=== PATIENT | male | born 1975 | race Caucasian/White ===

== ENCOUNTER → 2021-03-10 | Outpatient (CLI) | payer OTHER ==
[~2021-03-10] VITALS: Ht 188 cm; Wt 131.5 kg
[~2021-03-10] MED LIST: BACLOFEN 10MG T10 MG PO; DAILY VITE1 EAC1 PO; FISH OIL 1,0001 EAC9 PO; LYRICA 75 MG CA75 MG PO; NAPROXEN500 MG PO; PROTONIX40 M2 PO; ZYRTEC10 M4 PO
[2021-03-10 10:01] VITALS: BP 140/97
--- NOTE | 2021-03-10 10:22 | NUR ---
Pain Clinic Assessment: 1. History of Osteoarthritis: BACK History of Rheumatoid Arthritis: 2. Height: 6 ft. 2 in. 188.0 cm. Weight: 290.0 lb. oz. 131.544 kg. Patient's BMI: 37.2 3. Vital Signs: BP: 140/97 Pulse: 63 Resp: 18 Temp: 02 Sat: 99 ECG Mon: 4. Pain Intensity: 6 5. Fall Risk: Dizziness: N Needs help standing or walking: N Fallen in the last 3 months: N Fall risk comments: 6. Patient on Blood Thinner: None 7. History of Hypertension: N 8. Opioid Therapy greater than 6 weeks: Opiate Contract Signed: 9. Risk Assessment Tool Provided: 6 MODERATE RISK 10. Functional Assessment Tool: 45/70 11. Recreational Drug Use: Never Drug Type: Tobacco Use: Never Smoker Tobacco Type: Amount or Packs/day: How Many Years: Alcohol Use: Yes Frequency: Weekly Quant: 1-2
--- NOTE | 2021-03-11 08:51 | HPC ---
[facility] [place] [address] PAIN MANAGEMENT CONSULTATION Name: FLACA RUSSO Room #: REG Arlene SchmidRogerAyala.#: [id number] Admission: 03/10/21 Attend Phys: Amor Varma DO Discharge: Date of : 79 Report #: [id number] THIS REPORT FOR: cc: LAWRENCE - Family physician unknown FAM - Family physician unknown Amor Varma DO ~ cc: Cammei Carter MD DATE OF SERVICE: 03/10/2021 REFERRING PHYSICIAN: Cammie Carter DO. CHIEF COMPLAINT: Low back pain, right lower extremity pain with paresthesias. HISTORY OF PRESENT ILLNESS: As you know, the patient is a very pleasant 45-year-old male who reports acute onset of low back pain, right lateral thigh pain with radiation to the calf that began on 01/11/2021. The patient denied any specific injury or trauma that may have led to symptom development. He has had intermittent back pain over the years, which typically spontaneously resolved. He underwent MRI of the lumbar spine in 10/2020 for chronic back pain issues. At that time, the patient was given a 5-day prednisone taper, which provided good benefit, but unfortunately only short-lived. He has been trying conservative treatment options without benefit. He has been complaining of ongoing back symptoms that radiate towards the right side, unresolved with his current medication management. This prompted a referral to our clinic to discuss interventional treatment options. The patient indicates today his pain is continuous. He describes the pain as a burning, shooting, sharp, stabbing, numbness and tingling. Places current pain score 6/10. Daily average at 6/10. Worst pain has been 10/10. The patient states the pain is exacerbated with no specific activity. Pain is improved with only steroid exposure in the past. No other benefits or analgesic therapeutic options have been effective. He has been referred to our service to discuss interventional treatment options to address suspected lumbar radiculopathy. PAST MEDICAL HISTORY: 1. GERD. 2. Right elbow pain. 3. Right shoulder pain. 4. Right knee pain. 5. Seasonal allergies. 6. Varicoceles. PAST SURGICAL HISTORY: 1. Vasectomy. 2. Right great toe surgery x2. 3. Right knee surgery. [address] [address] PAIN MANAGEMENT CONSULTATION Name: FLACA RUSSO Room #: REG CLI Magalis.#: [id number] Admission: 03/10/21 Attend Phys: Amor Varma DO Discharge: Date of : 79 Report #: [id number] SOCIAL HISTORY: The patient denies tobacco use. Denies IV or illicit drug use. Admits to 5 alcoholic beverages per week. 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 He is not receiving Workmen's compensation. He is receiving disability income and benefits. He is not in litigation in regards to pain. He is unaccompanied at today's visit. REVIEW OF SYSTEMS: Positive for weight gain, hearing loss with tinnitus; shortness of breath with walking, lying flat; asthma, wheezing, changes in bowel movements, frequent diarrhea interspersed with constipation, abdominal pain, frequent urination, nocturia, testicular symptoms secondary to varicocele, changes in skin color and texture, rashes and itching, varicose veins, numbness and tingling sensations involving the low back and right lower extremity. All other review of systems negative per 12-point review of systems other than those listed in history of present illness. Pain impact score 45/70 indicating moderate interference of daily activities secondary to pain. ALLERGIES: No known drug allergies. CURRENT MEDICATIONS: Pantoprazole 40 mg once a day, naproxen 500 mg twice a day, baclofen 10 mg 3 times a day. IMAGING: MRI of the lumbar spine obtained on 10/27/2020 shows grade 1 anterolisthesis of L5 on S1. Degenerative findings around the right L5-S1 facet joint. There is mild hypertrophy at L1 through L4 with no significant central canal or neural foraminal stenosis. L4-L5 shows circumferential disk bulge, facet arthropathy. No significant foraminal stenosis. PHYSICAL EXAMINATION: VITAL SIGNS: Blood pressure 140/97, pulse is 63, respiratory rate 18 and unlabored. The patient 99% on room air, height 6 feet 2 inches tall, weight 290 pounds, BMI calculated 37.2. GENERAL: Well-developed, well-nourished, well-hydrated 45-year-old male appearing his stated age. He is placing current pain score at 6/10. HEENT: Normocephalic, atraumatic. Pupils equal, round and responsive to light. Extraocular muscles are intact. Speech is fluent. The patient deemed a good historian. He is wearing a face mask in compliance with COVID-19 regulations and hospital policy. LUNGS: Clear, no wheeze, rhonchi or rales. CARDIOVASCULAR: Regular. No appreciable gallop, no rub. ABDOMEN: Soft, mildly obese. EXTREMITIES: Show no clubbing, no cyanosis, no edema. MUSCULOSKELETAL: Lower extremity strength equal and symmetrical 5/5. Slight giveaway strength noted with hip flexion, knee extension on the right, ____ due to pain generation. Muscle bulk and tone is equal and symmetrical in lower extremities. Seated straight leg raising positive on the right. Supine [facility] [address] [place] [address] PAIN MANAGEMENT CONSULTATION Name: FLACA RUSSO Room #: REG JOLENE Magalis.#: [id number] Admission: 03/10/21 Attend Phys: Amor Varma DO Discharge: Date of : 79 Report #: [id number] straight leg raising positive on the right. Fabere's test is negative. Modified Gaenslen is positive for axial low back pain. Ankle clonus negative. Babinski's is negative. Lumbar provocation testing including extension, rotation, lateral flexion all intensify back pain with radiation to the right leg. ASSESSMENT: 1. Symptomatic lumbar radiculopathy. 2. Displacement of lumbar intervertebral disk with radiculopathy. 3. Neural foraminal stenosis of the lumbar spine. 4. Lumbosacral spondylosis with radiculopathy. 5. Lumbar degeneration. 6. Chronic intractable pain. PLAN: Based on today's physical exam and history the patient has provided, the description the patient uses in regards to pain as well as location of symptoms, likely source of his pain is lumbar radiculopathy. The patient and I had a very long discussion today about treatment for lumbar radiculopathy. After a review of the patient's MRI, which shows the changes at the L5-S1 level consistent with the patient's pain distribution. Once we completed that discussion, we had a conversation in regards to the treatment options, which are as follows: 1. We discussed physical therapy, stretching exercise, core strengthening and weight loss as a treatment approach. We discussed medication management, adding neuropathic medications such as amitriptyline, nortriptyline, Cymbalta, Lyrica or gabapentin to treat symptoms. We discussed lumbar epidural injections under fluoroscopic guidance for which the patient was referred to our clinic. We also discussed spinal cord stimulator therapy and ultimately surgical decompression to address the L5-S1 level specifically. After reviewing risks and benefits of all proposed treatment options, the patient chose to make arrangements to undergo a lumbar epidural injection under fluoroscopic guidance and try medication management. 2. The patient was advised due to third green party payer restrictions authorization would have to be obtained before the patient could undergo a lumbar epidural injection. We will begin that authorization immediately. Once that authorization has been completed, we will contact the patient to schedule him back for the first in the series of requested lumbar epidural injections. We are hopeful that the authorization process will go quickly and he will be able to return as rapidly as possible. 3. The patient will be started on Lyrica 75 mg dose 1 tab p.o. at bedtime for the next 2 nights. If no improvement in symptoms, no side effects, then double the dose to 150 mg p.o. at bedtime for 2 nights. If no improvement in symptoms, no side effects of sleepiness, disorientation, confusion, mental slowing, then increase to 3 tabs p.o. at bedtime. The patient was advised anytime during the titration, he notes improvement in symptoms, stabilize at that dose, no further escalation. A prescription was provided for patient for #90 tablets of the 70 filled 5 mg dose to be filled at his earliest convenience. [address] [address] PAIN MANAGEMENT CONSULTATION Name: FLACA RUSSO Room #: REG CLArlene Solorzano#: [id number] Admission: 03/10/21 Attend Phys: Amor Varma DO Discharge: Date of : 79 Report #: [id number] 4. We will see the patient back in followup visit once the authorization has been obtained for the patient to undergo lumbar epidural injection requested by the primary team and recommended by our services. We are hopeful that it will occur quickly and we will have him back to undergo that procedure. 5. We wish to thank Dr. Carter for the opportunity to see the patient in consultation. We will keep you apprised of response to treatment as we address lumbar radicular symptoms. Again, we wish to thank you for the opportunity to see him in consultation. <ELECTRONICALLY SIGNED> By: Amor Varma DO 03/11/21 0851 [id number] Amor Varma DO /nt
== END ==
LOC: PAIN 09:00
PROVIDERS: ATTEND Anesthesiology Pain Medicine
DX: M47.26 Other spondylosis with radiculopathy, lumbar region (principal); M47.27 Other spondylosis with radiculopathy, lumbosacral region; M51.16 Intervertebral disc disorders with radiculopathy, lumbar region; M48.061 Spinal stenosis, lumbar region without neurogenic claudication; G89.29 Other chronic pain; Z98.52 Vasectomy status

== ENCOUNTER → 2021-03-31 | Outpatient (CLI) | payer OTHER ==
[~2021-03-31] VITALS: Ht 188 cm; Wt 138.2 kg
[2021-03-31 15:12] VITALS: BP 130/94
--- NOTE | 2021-03-31 15:31 | NUR ---
Pain Clinic Assessment: 1. History of Osteoarthritis: BACK History of Rheumatoid Arthritis: 2. Height: 6 ft. 2 in. 188.0 cm. Weight: 304.6 lb. oz. 138.166 kg. Patient's BMI: 39.1 3. Vital Signs: BP: 130/94 Pulse: 63 Resp: 20 Temp: 02 Sat: 97 ECG Mon: 4. Pain Intensity: 3 5. Fall Risk: Dizziness: N Needs help standing or walking: N Fallen in the last 3 months: N Fall risk comments: 6. Patient on Blood Thinner: None 7. History of Hypertension: N 8. Opioid Therapy greater than 6 weeks: Opiate Contract Signed: 9. Risk Assessment Tool Provided: 6 MODERATE RISK 10. Functional Assessment Tool: 45/70 11. Recreational Drug Use: Never Drug Type: Tobacco Use: Never Smoker Tobacco Type: Amount or Packs/day: How Many Years: Alcohol Use: Yes Frequency: Special Occasions Quant: 3
--- NOTE | 2021-04-01 07:55 | HPC ---
[facility] [place] [address] PAIN MANAGEMENT CONSULTATION Name: FLACA RUSSO Room #: REG Arlene Rashad#: [id number] Admission: 03/31/21 Attend Phys: Amor Varma DO Discharge: Date of : 79 Report #: [id number] THIS REPORT FOR: cc: LAWRENCE - Family physician unknown FAM - Family physician unknown Amor Varma DO ~ cc: Cammie Carter DO DATE OF SERVICE: 03/31/2021 REFERRING PHYSICIAN: Cammie Carter DO CHIEF COMPLAINT: Low back pain, right lower extremity pain with paresthesias. HISTORY OF PRESENT ILLNESS: As you know, the patient is a very pleasant 45-year-old male who reports acute onset of low back pain, right lower extremity pain with paresthesia that began on 01/11/2021. He denied specific injury or trauma that may have led to symptom development. He states he has had intermittent back pain for years, which typically spontaneously resolved. He underwent an MRI of the lumbar spine, which showed changes at the L5-S1 level, which prompted a referral to our clinic. He was seen in consultation per the request of the referring doctor, Dr. Cammie Carter, on 03/10/2021. The patient was diagnosed at that time with symptomatic lumbar radiculopathy secondary to displacement of a lumbar intervertebral disk causing neural foraminal stenosis. We attempted to obtain authorization through the patient's third constitution party payer, [employer], but based on some complications, it was found ultimately that the patient was actually a [facility] patient and this took some logistics to finally correct. We have since corrected the issue and have obtained authorization for the patient to undergo a lumbar epidural injection under fluoroscopic guidance per the request of the primary care physician. He returns today in followup visit to undergo the lumbar epidural injection. He is placing pain score 3/10. He has had no changes in medication management since our last visit. There are no new injuries or traumas. ALLERGIES: No known drug allergies. CURRENT MEDICATIONS: Pregabalin 150 mg p.o. at bedtime, cetirizine 10 mg per day, multivitamin 1 tab per day, omega-3 fish oil 1 tab per day, pantoprazole 40 mg per day, naproxen 500 mg 3 times a day, baclofen 10 mg t.i.d. p.r.n. SOCIAL HISTORY: The patient denies tobacco use. Denies IV or illicit drug use. Admits to occasional alcohol beverage. 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 IMAGING: No new imaging available. PHYSICAL EXAMINATION: [address] [address] PAIN MANAGEMENT CONSULTATION Name: FLACA RUSSO Room #: REG JOLENE Solorzano#: [id number] Admission: 03/31/21 Attend Phys: Amor Varma DO Discharge: Date of : 79 Report #: [id number] VITAL SIGNS: Blood pressure 130/94; pulse 63; respiratory rate 20, unlabored; the patient 100% on room air; height 6 feet 2 inches tall; weight 304.6 pounds; BMI calculated 39.1. GENERAL: Well-developed, well-nourished, well-hydrated 45-year-old male appearing stated age. Pain is rated today around 3/10. HEENT: Normocephalic, atraumatic. Pupils equal, round and responsive. He is wearing a mask in compliance with COVID-19 regulations and hospital policies. EXTREMITIES: Show no clubbing, no cyanosis, no edema. MUSCULOSKELETAL: Lower extremity strength appears symmetrical 5/5. Muscle bulk and tone is equal and symmetrical in lower extremities. Seated straight leg raising is positive on the right. Supine straight leg raising positive on the right. Fara's test is negative. Gait is mildly antalgic favoring right lower extremity over left. ASSESSMENT: 1. Symptomatic lumbar radiculopathy. 2. Displacement of lumbar intervertebral disk with radiculopathy. 3. Neural foraminal stenosis of lumbar spine. 4. Lumbosacral spondylosis with radiculopathy. 5. Lumbar degeneration. 6. Chronic intractable pain. PLAN: 1. The patient returns today in followup visit having received authorization to undergo a lumbar epidural injection under fluoroscopic guidance. The patient was sent to our clinic under [employer] [place] [employer] coverage, but it was ultimately found that the patient was actually under [employer] [facility] coverage. This caused a significant amount of time to elapse since our evaluation due to having to correct for this issue. We have now corrected for the issue and he is now receiving coverage through [employer] and he has received the authorization to undergo a lumbar epidural injection. He returns today with a pain score of 3/10 requesting a lumbar epidural injection. He has been advised risks and benefits, which include but are not necessarily limited to bleeding, bruising, infection, worsening of pain, no relief of pain, also risk of temporary or permanent muscle weakness, temporary or permanent nerve damage, possible paralysis, post-dural puncture, headache and . The patient states understood and wished to proceed. 2. No medication changes made at today's visit. We did advise the patient if he wishes to reduce his reliance on the Lyrica, he can drop by 1 tablet every 3 days, coming off the medication in 9 days. He will watch for any side effects or worsening of pain while reducing the medication. If he does note worsening of symptoms, we would be more than willing to continue the patient on Lyrica for analgesic benefit. 3. We will see the patient back in followup visit in 30 days. At that time, review the efficacy of today's lumbar epidural injection to determine if next in the series might be necessary. [address] [address] PAIN MANAGEMENT CONSULTATION Name: EWAFLACA ESCOBAR Room #: REG CLArlene Solorzano#: [id number] Admission: 03/31/21 Attend Phys: Amor Varma DO Discharge: Date of : 79 Report #: [id number] PROCEDURE NOTE DESCRIPTION OF PROCEDURE: L5-S1 right paramedian epidural steroid injection under fluoroscopic guidance. This is the first procedure of the first series that the patient is undergoing. After obtaining written consent, the patient was taken back to the fluoroscopy suite, placed in a prone position with pillow under the abdomen to decrease lumbar lordosis. The skin overlying the lumbosacral area was then prepped and draped in aseptic fashion. The L5-S1 vertebral interspace was then identified by AP fluoroscopy. The skin and subcutaneous tissue overlying the target site of injection was anesthetized with 3 mL 1% lidocaine. A 20-gauge 3-1/2 inch Tuohy needle was then advanced under fluoroscopic guidance towards the epidural space using a right paramedian approach. The epidural space was identified using loss of resistance to air technique. After negative aspiration for heme or cerebrospinal fluid, a total of 1 mL of Omnipaque was injected. A lumbar epidurogram was confirmed using both AP and lateral fluoroscopy. After negative aspiration for heme or cerebrospinal fluid, 5 mL of a solution containing 2 mL 40 mg per mL 80 mg total triamcinolone along with 3 mL of lidocaine 1% was injected in increments. Contrast spread was noted posterior epidural space. The needle was then retracted approximately half way and needle tract flushed with 1 mL of 1% of lidocaine. Needle was then removed. There were no apparent sensory or motor deficits in the lower extremity following the procedure. A sterile bandage was placed over the injection site. The heart rate, pulse, oximetry and blood pressure were continuously monitored after the procedure. There were no apparent complications. The patient tolerated the procedure well and was carefully escorted to the recovery room in stable condition. There were no apparent complications. After meeting discharge criteria, the patient was then discharged home. <ELECTRONICALLY SIGNED> By: Amor Varma DO 04/01/21 [id number] Amor Varma DO /nt
== END | disposition home or self-care (01) ==
LOC: PAIN 10:52
PROVIDERS: ATTEND Anesthesiology Pain Medicine
DX: M51.16 Intervertebral disc disorders with radiculopathy, lumbar region (principal); M47.27 Other spondylosis with radiculopathy, lumbosacral region; M48.061 Spinal stenosis, lumbar region without neurogenic claudication; Z98.890 Other specified postprocedural states; Z79.899 Other long term (current) drug therapy